=== PATIENT | male | born 1975 | race Caucasian/White ===

== ENCOUNTER 2018-09-01 12:29 | Emergency (ER) | payer OTHER ==
[2018-09-01 13:16] VITALS: BP 132/100
[2018-09-01] MEDS ORDERED: BOOSTRIX IM ONE (13:16)
--- NOTE | 2018-09-01 13:16 | Emergency Department Report ---
Blank Doc - Documentation Documentation: This is a 42-year-old male that presents with left knee lac. Denies being UTD with tetanus. This initial assessment/diagnostic orders/clinical plan/treatment(s) is/are subject to change based on patient's health status, clinical progression and re- assessment by fellow clinical providers in the ED. Further treatment and workup at subsequent clinical providers discretion. Patient/guardians urged not to elope from the ED as their condition may be serious if not clinically assessed and managed. Initial orders include: 1- Patient sent to [facility] for further evaluation and treatment 2- tetanus
[2018-09-01] MEDS ORDERED: XYLOCAINE 1% MPF 5 mL ONE (13:58)
[2018-09-01] MEDS ORDERED: XYLOCAINE 1% MPF 5 mL INFILTRATI ONE (13:59)
[2018-09-01] MEDS ORDERED: TRIPLE ANTIBIOTIC TP ONE (14:11)
--- NOTE | 2018-09-01 14:51 | Emergency Department Report ---
ED Laceration HPI - HPI Chief Complaint: Wound/Laceration Stated Complaint: LFT TOE INJURY/PAIN Time Seen by Provider: 09/01/18 12:49 Location: Lower Extremity Severity: mild, moderate Tetanus Status: Not up to Date Laceration Symptoms: Yes Pain, No Foreign Body Sensation, No Numbness, No Weakness Other History: Patient is a 42-year-old male presents to ED today after injury he sustained at work. Patient states he was cleaning a machine when the machine accident in the cut his left knee. Patient states bleeding started shortly after that. Patient wrapped the cloth around the laceration and came to the ED. Patient does not recall his tetanus status ED Review of Systems ROS: Stated complaint: LFT TOE INJURY/PAIN Other details as noted in HPI Comment: All other systems reviewed and negative ED Past Medical Hx - Past Medical History Previous Medical History?: No - Surgical History Past Surgical History?: No - Social History Smoking Status: Never Smoker Substance Use Type: None - Medications Home Medications: Home Medications Medication Instructions Recorded Confirmed Last Taken Type Ibuprofen [Motrin] 800 mg PO Q8HR #30 tablet 09/01/18 Unknown Rx cephALEXin [Keflex] 500 mg PO Q12HR #10 cap 09/01/18 Unknown Rx Laceration Physical Exam - Exam General: Vital signs noted. No distress. Alert and acting appropriately. Wound Length (cm): 2 Laceration Location: Lower Extremity (left medial knee) Laceration Exam: Yes Normal Distal CMS, No Foreign Body, No Exposed Tendon, Vessel, or Nerve, No Tendon Injury ED Course Vital Signs 09/01/18 13:15 Temperature 98.5 F Pulse Rate 70 Respiratory 16 Rate Blood Pressure 132/100 O2 Sat by Pulse 98 Oximetry - Laceration /Wound Repair Left Knee Wound Location: lower extremity Wound Length (cm): 2 Wound's Depth, Shape: superficial, linear Wound Explored: clean Betadine Prep?: Yes Anesthesia: 1% Lidocaine Volume Anesthetic (ccs): 5 Wound Repaired With: sutures Suture Size/Type: 4:0, proline Layer Closure?: No Sterile Dressing Applied?: Yes ED Medical Decision Making - Medical Decision Making The 2cm laceration wound was prepped and draped in sterile fashion. Anesthesia was achieved with 5mL of 1% lidocaine. The wound was irrigated with 200cc NS and explored. There were no foreign bodies The wound was reapproximated in 1 layer with 12 sutures suing with three 4-0 monofilament sutures in the dermis with continuos sutures percutaneously. There was excellent reapproximation of the wound edges. The patient tolerated the procedure without complication. Discussed the patient to return in 10-14 days for suture removal. Vital signs are normal patient is in no acute distress at this instructions given. Critical care attestation.: If time is entered above; I have spent that time in minutes in the direct care of this critically ill patient, excluding procedure time. ED Disposition Clinical Impression: Laceration of knee Disposition: - TO HOME OR SELFCARE Is pt being admited?: No Does the pt Need Aspirin: No Condition: Stable Instructions: Suture Care (ED), Laceration (ED) Additional Instructions: Make sure to follow up with the primary care physician as discussed. Take all your medications as you've been prescribed. Return to ED in 10-14 days for suture removal. If you have any worsening symptoms or develop new symptoms please return to ED immediately. Prescriptions: cephALEXin [Keflex] 500 mg PO Q12HR #10 cap Ibuprofen [Motrin] 800 mg PO Q8HR #30 tablet Referrals: MANUEL VASQUEZ MD [Primary Care Provider] - 3-5 Days Forms: Accompanied Note, Work/School Release Form(ED) Time of Disposition: 14:58 Print Language: DIVEHI
== END 2018-09-01 15:19 | disposition home or self-care (01) ==
LOC: ED 12:29
DX: S81.012A Laceration without foreign body, left knee, initial encounter (principal); W45.8XXA Other foreign body or object entering through skin, initial encounter; Y93.89 Activity, other specified; Y92.89 Other specified places as the place of occurrence of the external cause; Y99.8 Other external cause status
CPT/HCPCS: 90471; 90715; 99282; A6250